=== PATIENT | male | born 1995 | race Two or more races ===

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

== ENCOUNTER 2019-05-15 02:59 | Emergency (ER) | payer BC ==
[~2019-05-15] VITALS: Ht 170.2 cm; Wt 63.5 kg
[~2019-05-15 02:59] MED LIST: UNOBMED
--- NOTE | 2019-05-15 03:10 | NUR ---
ED Nurse Note: pt presents to ED witha L pinky injury. pt states that he was skateboarding with his dog 30 min [employer] and the dog ran which made him fall off of his skateboard. pt has abrasions to L forearm and L pinky appears dislocated, skin is still intact. pt denies taking any meds [employer].
[2019-05-15 03:11] VITALS: BP 139/80
[2019-05-15] MEDS ORDERED: HYDROcodone/Acetamin 5/325 tab ORAL ONE (03:15)
--- NOTE | 2019-05-15 03:19 | Emergency Room Report ---
History of Present Illness General Chief Complaint: Upper Extremity Injury Source: Patient Present Illness HPI Is a 24-year-old male who is right-hand dominant. Presents with complaint of injury to his left fifth finger. He was walking his dog while he was skateboarding. The dog pulled him and he fell onto outstretched hand. He has injury to his left hand and has obvious deformity to the fifth finger. Pain is 10 out of 10. This occurred just prior to arrival. No other injury. No head injury. Nothing made it better. Movement made it worse. Allergies: Coded Allergies: No Known Allergies (Unverified , 05/15/19) Patient History Past Medical History: see triage record, old chart reviewed Past Surgical History: none Pertinent Family History: none Social History: Denies: smoking Immunizations: other Reviewed Nursing Documentation: PMH: Agreed; PSxH: Agreed Nursing Documentation-PMH Past Medical History: No Stated History Review of Systems Eye: Denies: eye pain, blurred vision ENT: Denies: ear pain, nose congestion, throat swelling Respiratory: Denies: cough, shortness of breath Cardiovascular: Denies: chest pain, palpitations Gastrointestinal: Denies: abdominal pain, diarrhea, nausea, vomiting Musculoskeletal: Reports: joint pain; Denies: back pain Skin: Denies: rash Neurological: Denies: headache, numbness Endocrine: Denies: increased thirst, increased urine Hematologic/Lymphatic: Denies: easy bruising All Other Systems: negative except mentioned in HPI Physical Exam Vital Signs Date Time Temp Pulse Resp B/P (MAP) Pulse Ox O2 Delivery O2 Flow Rate FiO2 05/15/19 03:04 98.4 83 18 139/80 (99) 98 Room Air Vitals unremarkable Sp02 EP Interpretation: reviewed, normal General Appearance: well appearing, no apparent distress, alert Head: normocephalic, atraumatic Eyes: bilateral eye PERRL, bilateral eye EOMI ENT: hearing grossly normal, normal pharynx Neck: full range of motion, supple, no meningismus Respiratory: chest non-tender, lungs clear, normal breath sounds Cardiovascular #1: regular rate, rhythm, no murmur Gastrointestinal: normal bowel sounds, non tender, no mass, no organomegaly, no bruit, non-distended Musculoskeletal: back normal, normal range of motion, gait/station normal, other - Left hand: He has abrasion the dorsum of the hand. His fifth finger has deformity with ulnar deviation of the proximal phalanx. Psychiatric: mood/affect normal Procedures Splinting Splinting : Consent: Verbal Location: left hand Hand-Made Type: plaster Splint: ulnar Pre-Proc Neuro Vasc Exam: normal Post-Proc Neuro Vasc Exam: normal Patient Tolerated: Well Complications: None Joint Reduction Joint Reduction : Consent: Verbal Joint Reduction Site: other - left 5th finger Procedural Sedation: No Pre-Procedure NV Exam: Yes Post-Procedure NV Exam: Yes Post Joint Reduction Film: joint reduced Patient Tolerated: Well Complications: None Progress Hematoma block with 1% lidocaine. Injected 0.2 cc. With traction and rotation , I reduce the fracture without any difficulty. It was then wei taped and then splinted. Medical Decision Making Diagnostic Impression: Primary Impression: Proximal phalanx fracture of finger Qualified Codes: S62.617A - Displaced fracture of proximal phalanx of left little finger, initial encounter for closed fracture ER Course Patient presents with a fall with finger fracture. Also has hand abrasion. Patient's fracture reduced and splinted. Patient will be discharged home with orthopedic follow-up. No open fracture. Other X-Ray Diagnostic Results Other X-Ray Diagnostic Results : X-Ray ordered: Left finger x-rays # of Views/Limited Vs Complete: 4 View Indication: Pain EP Interpretation: Yes Interpretation: no soft tissue swelling, other - Dislaced proximal phalanx fracture of the fifth finger. Impression: Other - displaced 5th prox phal frx Electronically Signed by: Bala Amaro MD Last Vital Signs Date Time Temp Pulse Resp B/P (MAP) Pulse Ox O2 Delivery O2 Flow Rate FiO2 05/15/19 03:11 98.4 85 18 139/80 98 Room Air Status: improved Disposition: HOME, SELF-CARE Condition: Stable Scripts Hydrocodone Bit/Acetaminophen 5-325* (NORCO 5-325*) 1 Each Tablet 1 TAB ORAL Q6H PRN for For Pain, #20 TAB 0 Refills Prov: Bala Amaro MD 05/15/19 Ibuprofen* (MOTRIN*) 600 Mg Tablet 600 MG ORAL THREE TIMES A DAY, #30 TAB 0 Refills Prov: Bala Amaro MD 05/15/19 Referrals: NON PHYSICIAN (PCP) Additional Instructions: Elevate hand. Ice pack to the area. Follow-up with your doctor within 7 days for orthopedic referral. Return if symptoms worsen. Bala Amaro MD May 15, 2019 03:19
[2019-05-15] MEDS ORDERED: IBUPROFEN600 MG ORAL (03:42)
[2019-05-15] MEDS ORDERED: NORCO 5-325 TA1 EACH ORAL (03:42)
[2019-05-15] MEDS ORDERED: Neosporin Oint Ud Pkt TOPIC ONE (03:45)
[2019-05-15 03:50] VITALS: BP 131/78
--- NOTE | 2019-05-15 03:50 | NUR ---
ER DISCHARGE NOTE: Patient is cleared to be discharged per ERMD, pt is aox4, on room air, with stable vital signs. pt was given dc and prescription instructions, pt was able to verbalize understanding, pt id band removed. Pt instructed to follow up with orthopedic physician. pt is able to ambulate with steady gait. pt took all belongings. Splint placed on pt L hand by tech.
--- NOTE | 2019-05-15 10:30 | Diagnostic Imaging Report ---
Indication: Pain, trauma, secondary to fall Technique: 3 views left fifth finger Comparison: none Findings: There is a transverse comminuted fracture of the proximal shaft of the fifth proximal phalanx. It is displaced anteriorly by just over one bone width, overrides by approximately 5 mm, and is severely angulated. No other acute fractures. Impression: Displaced comminuted fracture of the fifth proximal phalanx, as described
== END 2019-05-15 03:50 | disposition home or self-care (01) ==
LOC: EMR 03:09
DX: S62.617A Displaced fracture of proximal phalanx of left little finger, initial encounter for closed fracture (principal); V00.131A Fall from skateboard, initial encounter; Y93.K1 Activity, walking an animal; Y92.9 Unspecified place or not applicable
CPT/HCPCS: 99283

== ENCOUNTER 2019-11-20 22:00 | Emergency (ER) | payer BC ==
[~2019-11-20] VITALS: Ht 170.2 cm; Wt 77.1 kg
[~2019-11-20 22:00] MED LIST changes: +IBUPROFEN600 MG ORAL; +NORCO 5-325 TA1 EACH ORAL
[2019-11-20 22:17] VITALS: BP 113/79
[2019-11-20] MEDS ORDERED: HYDROcodone/Acetamin 5/325 tab ORAL ONE (22:30)
[2019-11-20] MEDS ORDERED: HYDROCODON-ACE1 EA15 ORAL (22:41)
[2019-11-20] MEDS ORDERED: IBUPROFEN600 M1 ORAL (22:41)
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
[2019-11-20 22:50] VITALS: BP 113/79
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
== END 2019-11-20 22:50 | disposition home or self-care (01) ==
LOC: EMR 22:30
DX: S62.337A Displaced fracture of neck of fifth metacarpal bone, left hand, initial encounter for closed fracture (principal); W22.8XXA Striking against or struck by other objects, initial encounter; Y93.9 Activity, unspecified; Y92.9 Unspecified place or not applicable
CPT/HCPCS: 29125; 99283